=== PATIENT | female | born 1995 | race Hispanic/Latino ===

== ENCOUNTER 2018-10-22 18:28 | Emergency (ER) | payer OTHER ==
--- NOTE | 2018-10-22 18:39 | Event Note ---
ED Screening Note ED Screening Note: Pt presents with N/V for two weeks pt is 7 weeks OB: alecia pearce, has not had first appt, next thursday no abd pain no vaginal bleeding this is first no dysuria no PMHx no allergies to meds non smoker occ ETOH, before no drug use This initial assessment/diagnostic orders/clinical plan/treatment(s) is/are subject to change based on patients health status, clinical progression and re- assessment by fellow clinical providers in the ED. Further treatment and workup at subsequent clinical providers discretion. Patient/guardian urged not to elope from the ED as their condition may be serious if not clinically assessed and managed. Initial orders include: UA, hcg quant, labs
[2018-10-22 19:03] LABS: Basophils # (Auto) 0.1 K/mm3 (0.0-0.1); Basophils % (Auto) 0.4 % (0.0-1.8); Eosinophils % (Auto) 0.1 % (0.0-4.3); Hematocrit 35.6 % (30.3-42.9); Hemoglobin 12.1 gm/dl (10.1-14.3); Lymphocytes # (Auto) 2.3 K/mm3 (1.2-5.4); Lymphocytes % (Auto) 17.1 % (13.4-35.0); Mean Corpuscular HGB Conc 34 % (30-34); Mean Corpuscular Volume 79 fl (79-97); Monocytes # (Auto) 0.9 K/mm3 (0.0-0.8); Monocytes % (Auto) 6.4 % (0.0-7.3); Platelet Count 335 K/mm3 (140-440); Red Blood Count 4.53 M/mm3 (3.65-5.03); Red Cell Distribution Width 15.2 % (13.2-15.2)
[2018-10-22 19:11] LABS: Bacteria,Urine 1+ /HPF (Negative); Bilirubin,Urine NEG (Negative); Blood,Urine NEG (Negative); Color,Urine Yellow (Yellow); Mucus,Urine 3+ /HPF; Protein,Urine <15 mg/dL mg/dL (Negative); Urobilinogen,Urine < 2.0 mg/dL (<2.0)
[2018-10-22 19:25] LABS: Alanine Aminotransferase 109 units/L (7-56); Albumin 4.1 g/dL (3.9-5); BUN/Creatinine Ratio 13; Blood Urea Nitrogen 8 mg/dL (7-17); Hemolysis Index 5
[2018-10-22 19:33] LABS: Calcium 9.8 mg/dL (8.4-10.2)
[2018-10-22] MEDS ORDERED: NACL 0.9% 1000 ML 1,000 ML IV ONE (23:37)
[2018-10-22] MEDS ORDERED: REGLAN IV ONE (23:37)
[2018-10-22] MEDS ORDERED: PEPCID IV ONE (23:37)
[2018-10-23] MEDS ORDERED: NACL 0.9% 1000 ML 1,000 ML IV ONE (01:16)
--- NOTE | 2018-10-23 01:21 | Ultrasound Report ---
US OB <= 14 weeks fetus INDICATION / CLINICAL INFORMATION: pain, nausea, vomiting, . COMPARISON: None available. FINDINGS: A single intrauterine gestation with heart rate 148 bpm is confirmed [place]-rump length is 12 mm corresponding to a 7 week 3 day gestation. Both ovaries are visualized and appear normal. IMPRESSION: 1. Viable single 7 week 3 day intrauterine gestation. Signer Name: Cruz Godwin MD Signed: 10/23/2018 1:17 AM Workstation Name: [id number]
--- NOTE | 2018-10-23 04:19 | Emergency Department Report ---
ED N/V/D HPI - General Chief complaint: Nausea/Vomiting/Diarrhea Stated complaint: 7WKS /DEHYDRATION Time Seen by Provider: 10/22/18 18:37 Source: patient Mode of arrival: Ambulatory Limitations: No Limitations - History of Present Illness Initial comments: Patient is A0 23-year-old white female with no past medical history and who is approximately 7 weeks gestation presents to the ED with complaint of acute onset persistent intermittent intractable nausea and vomiting for the last 2 weeks worse in the last 2 days. Patient states that she has not been able to keep anything down including water because of persistent nausea and vomiting. Patient denies abdominal pain, diarrhea, vaginal bleeding, dysuria, urinary frequency and urgency, dizziness, headache, chest pain, shortness of breath, fever, chills, sore throat, nasal and sinus congestion or change in vision and syncope. MD complaint: nausea, vomiting -: Sudden, week(s) (2) Description of Vomiting: food contents, watery, bilious Associated Abdominal Pain: Yes Location: diffuse Radiation: none Severity: severe Pain Scale: 7 Quality: aching, dull Consistency: intermittent Improves with: none Worsens with: none Associated Symptoms: denies other symptoms, myalgias, loss of appetite, malaise, nausea/vomiting. denies: chest pain, cough, diaphoresis, fever/chills, headaches, rash, dysuria, shortness of breath, syncope, weakness - Related Data Previous Rx's Medication Instructions Recorded Last Taken Type Promethazine [Phenergan] 25 mg PO Q6HR PRN #30 tab 10/23/18 Unknown Rx Promethazine [Phenergan] 25 mg ME Q6HR PRN #20 supp.rect 10/23/18 Unknown Rx Allergies Allergy/AdvReac Type Severity Reaction Status Date / Time No Known Allergies Allergy Unverified 10/22/18 18:29 ED Review of Systems ROS: Stated complaint: 7WKS /DEHYDRATION Other details as noted in HPI Constitutional: denies: chills, fever Eyes: denies: eye pain, eye discharge, vision change ENT: denies: ear pain, throat pain Respiratory: denies: cough, shortness of breath, wheezing Cardiovascular: denies: chest pain, palpitations Endocrine: no symptoms reported Gastrointestinal: abdominal pain, nausea, vomiting. denies: diarrhea Genitourinary: denies: urgency, dysuria, discharge Musculoskeletal: denies: back pain, joint swelling, arthralgia Skin: denies: rash, lesions Neurological: denies: headache, weakness, paresthesias Psychiatric: denies: anxiety, depression Hematological/Lymphatic: denies: easy bleeding, easy bruising ED Past Medical Hx - Past Medical History Previous Medical History?: No - Surgical History Past Surgical History?: No - Social History Smoking Status: Never Smoker Substance Use Type: Alcohol - Medications Home Medications: Home Medications Medication Instructions Recorded Confirmed Last Taken Type Promethazine [Phenergan] 25 mg PO Q6HR PRN #30 tab 10/23/18 Unknown Rx Promethazine [Phenergan] 25 mg ME Q6HR PRN #20 supp.rect 10/23/18 Unknown Rx ED Physical Exam - General Limitations: No Limitations General appearance: alert, in no apparent distress - Head Head exam: Present: atraumatic, normocephalic, normal inspection - Eye Eye exam: Present: normal appearance, PERRL, EOMI. Absent: scleral icterus, conjunctival injection, nystagmus Pupils: Present: normal accommodation - ENT ENT exam: Present: normal exam, normal orophraynx, mucous membranes moist, TM's normal bilaterally, normal external ear exam - Neck Neck exam: Present: normal inspection, full ROM. Absent: tenderness, meningismus, thyromegaly - Respiratory Respiratory exam: Present: normal lung sounds bilaterally. Absent: respiratory distress, wheezes, rhonchi, chest wall tenderness, accessory muscle use, decreased breath sounds - Cardiovascular Cardiovascular Exam: Present: normal rhythm, tachycardia, normal heart sounds. Absent: systolic murmur, diastolic murmur, rubs, gallop - GI/Abdominal GI/Abdominal exam: Present: soft, normal bowel sounds. Absent: distended, tenderness, rebound, hyperactive bowel sounds, hypoactive bowel sounds, organomegaly - Rectal Rectal exam: Present: deferred - Extremities Exam Extremities exam: Present: normal inspection, full ROM, normal capillary refill. Absent: tenderness, pedal edema - Back Exam Back exam: Present: normal inspection, full ROM. Absent: tenderness, CVA tenderness (R), CVA tenderness (L), muscle spasm, paraspinal tenderness, vertebral tenderness - Neurological Exam Neurological exam: Present: alert, oriented X3, CN II-XII intact, normal gait - Psychiatric Psychiatric exam: Present: normal affect, normal mood - Skin Skin exam: Present: warm, dry, intact, normal color. Absent: rash ED Course Vital Signs 10/22/18 10/22/18 10/23/18 18:37 23:08 01:18 Temperature 98.1 F 98.9 F 98.3 F Pulse Rate 107 H 99 H 86 Respiratory 16 18 22 Rate Blood Pressure 129/71 Blood Pressure 112/62 103/47 [Left] O2 Sat by Pulse 99 99 98 Oximetry 10/23/18 02:53 Temperature Pulse Rate 92 H Respiratory 16 Rate Blood Pressure Blood Pressure 101/55 [Left] O2 Sat by Pulse 100 Oximetry - Reevaluation(s) Reevaluation #1: 10/23/18 04:18 Patient is alert and oriented 3 and is not in distress, tachycardic and in no distress. Lipase results were reviewed and shows acute leukocytosis of 13,400, elevated AST and ALT levels of 55 and 109 respectively. HCG Quant was [id number]. Urinalysis unremarkable. Transvaginal ultrasound shows a single viable IUP at 7 weeks and 3 days with a heart rate of 148 bpm. Patient was treated in the ED with normal saline IV fluids, antiemetics and on reevaluation, patient nausea and vomiting has resolved. Patient past oral fluid challenge in the ED. Patient was discharged home on antiemetic medications and advised to follow-up with her [facility] physician in 5-7 days for reevaluation. Patient is advised to return to the ED immediately if symptoms get worse. Patient was advised to maintain a clear liquid diet for 12-24 hours. 10/23/18 04:19 ED Medical Decision Making - Lab Data Result diagrams: 10/22/18 18:44 10/22/18 18:44 - Radiology Data Radiology results: report reviewed, image reviewed Transvaginal ultrasound shows a single viable IUP at 7 weeks and 3 days with a heart rate of 148 bpm. - Medical Decision Making Patient is alert and oriented 3 and is not in distress, tachycardic and in no distress. Lipase results were reviewed and shows acute leukocytosis of 13,400, elevated AST and ALT levels of 55 and 109 respectively. HCG Quant was [id number]. Urinalysis unremarkable. Transvaginal ultrasound shows a single viable IUP at 7 weeks and 3 days with a heart rate of 148 bpm. Patient was treated in the ED with normal saline IV fluids, antiemetics and on reevaluation, patient nausea and vomiting has resolved. Patient past oral fluid challenge in the ED. Patient was discharged home on antiemetic medications and advised to follow-up with her [facility] physician in 5-7 days for reevaluation. Patient is advised to return to the ED immediately if symptoms get worse. Patient was advised to maintain a clear liquid diet for 12-24 hours. 10/23/18 04:19 - Differential Diagnosis Hyperemesis gravidarum, Dehydration in , abdominal pain in pregnan Critical care attestation.: If time is entered above; I have spent that time in minutes in the direct care of this critically ill patient, excluding procedure time. ED Disposition Clinical Impression: Hyperemesis gravidarum with dehydration Disposition: TO HOME OR SELFCARE Is pt being admited?: No Does the pt Need Aspirin: No Condition: Stable Instructions: Hyperemesis Gravidarum (ED), Dehydration (ED) Additional Instructions: Maintain a clear liquid diet for 12-24 hours, take medications for nausea and vomiting is advised, drink plenty of fluids and follow up with your regular physician in 5-7 days for reevaluation. Return to the ED immediately if symptoms get worse. Prescriptions: Promethazine [Phenergan] 25 mg PO Q6HR PRN #30 tab PRN Reason: Nausea Promethazine [Phenergan] 25 mg ME Q6HR PRN #20 supp.rect PRN Reason: Nausea Referrals: JOAN VICTOR MD [Staff Physician] - 3-5 Days Time of Disposition: 04:24 Print Language: ALBANIAN
[2018-10-23 05:08] VITALS: BP 108/56
--- NOTE | 2018-11-05 13:06 | Ultrasound Report ---
Transvaginal ultrasound. 10/23/2018. HISTORY: Pain with nausea, vomiting. FINDINGS: Imaging was performed transabdominally. A single viable intrauterine is dated 7 w eeks 3 days. heart tones are 149 bpm. The ovaries are normal. IMPRESSION: Viable intrauterine dated 7 weeks 3 days. Signer Name: Rajinder Rowland MD Signed: 11/05/2018 1:02 PM Workstation Name: [id number]
== END 2018-10-23 04:45 | disposition home or self-care (01) ==
LOC: ED 18:28
DX: O21.0 Mild hyperemesis gravidarum (principal); O99.281 Endocrine, nutritional and metabolic diseases complicating pregnancy, first trimester; E86.0 Dehydration; Z79.899 Other long term (current) drug therapy; Z3A.01 Less than 8 weeks gestation of pregnancy
CPT/HCPCS: 36415; 76801; 76817; 80053; 81001; 83690; 84702; 85025; 96361; 96374; 96375; 99284; J2765; J7030